=== PATIENT | female | born 1980 | race American Indian/Alaskan Native ===

== ENCOUNTER 2016-09-10 19:02 | Emergency (ER) | payer OTHER ==
[2016-09-10 19:33] VITALS: BMI 39.1
[2016-09-10 19:38] VITALS: RESP 16
--- NOTE | 2016-09-10 19:59 | ED PDOC ---
Arrival/HPI - General Chief Complaint: Female Genitourinary Time Seen by Provider: 09/10/16 19:37 Historian: Patient - History of Present Illness Narrative History of Present Illness (Text): 09/10/16 19:55 36yo female with no PMHx present with report of pelvis pressure and hematuria. Patient states she had vaginal bleeding briefly on Friday after having sex. States the bleeding resolved but she continue to have pelvic pressure and blood when she wipes herself after urination. States her LMP was August 16 and she is not sure id she is having her period. states she have appointment with her PMD next week, but don't want to wait. Notes that her mother had cervical CA. also notes that she was recently treated for UTI. Denies fever, chills, nausea, vomiting, diarrhea, back pain, dysuria, vaginal discharge, any other complaint. Past Medical History - Provider Review Nursing Documentation Reviewed: Yes - Cardiac Hx Cardiac Disorders: No - Pulmonary Hx Respiratory Disorders: No - Neurological Hx Neurological Disorder: No - HEENT Hx HEENT Disorder: No - Renal Hx Renal Disorder: No - Endocrine/Metabolic Hx Endocrine Disorders: No - Hematological/Oncological Hx Blood Disorders: No - Integumentary Hx Dermatological Disorder: No - Musculoskeletal/Rheumatological Hx Musculoskeletal Disorders: No - Gastrointestinal Hx Gastrointestinal Disorders: No - Genitourinary/Gynecological Hx Genitourinary Disorders: No - Psychiatric Hx Psychophysiologic Disorder: No Hx Substance Use: No - Surgical History Hx Tonsillectomy: Yes (and addenoids) Hx Tubal Ligation: Yes - Anesthesia Hx Anesthesia: No Family/Social History - Physician Review Nursing Documentation Reviewed: Yes Family/Social History: Unknown Family HX Smoking Status: Light Smoker < 10 Cigarettes Daily Hx Alcohol Use: Yes Hx Substance Use: No Allergies/Home Meds Allergies/Adverse Reactions: Allergies Penicillins Allergy (Verified 09/10/16 19:33) ANAPHYLAXIS Review of Systems - Physician Review All systems were reviewed & negative as marked: Yes - Review of Systems Constitutional: Normal Eyes: Normal ENT: Normal Respiratory: Normal Cardiovascular: Normal Gastrointestinal: Abdominal Pain. absent: Constipation, Diarrhea, Nausea, Vomiting, Hematochezia, Hematemesis Genitourinary Female: Hematuria. absent: Dysuria, Frequency, Vaginal Bleeding Musculoskeletal: Normal Skin: Normal Neurological: Normal Endocrine: Normal Hemo/Lymphatic: Normal Psychiatric: Normal Physical Exam Vital Signs Reviewed: Yes Vital Signs Pulse Resp BP Pulse Ox 09/10/16 22:12 82 16 137/80 100 09/10/16 19:33 16 98 Temperature: Afebrile Blood Pressure: Normal Pulse: Regular Respiratory Rate: Normal Appearance: Positive for: Well-Appearing, Non-Toxic, Comfortable Pain Distress: None Mental Status: Positive for: Alert and Oriented X 3 - Systems Exam Head: Present: Atraumatic, Normocephalic Pupils: Present: PERRL Extroacular Muscles: Present: EOMI Conjunctiva: Present: Normal Mouth: Present: Moist Mucous Membranes Neck: Present: Normal Range of Motion Respiratory/Chest: Present: Clear to Auscultation, Good Air Exchange. No: Respiratory Distress, Accessory Muscle Use Cardiovascular: Present: Regular Rate and Rhythm, Normal S1, S2. No: Murmurs Abdomen: Present: Normal Bowel Sounds, Other (Soft). No: Tenderness, Distention , Peritoneal Signs, Rebound, Guarding, McBurney's Point Tender, Rovsing's Sign Present Back: Present: Normal Inspection Upper Extremity: Present: Normal Inspection. No: Cyanosis, Edema Lower Extremity: Present: Normal Inspection. No: Edema Neurological: Present: GCS=15, CN II-XII Intact, Speech Normal Skin: Present: Warm, Dry, Normal Color. No: Rashes Psychiatric: Present: Alert, Oriented x 3, Normal Insight, Normal Concentration Medical Decision Making ED Course and Treatment: 09/11/16 00:45 PT was comfortable in ED. Abdominal exam was benign. UA was negative except the large blood. Transvaginal US IMPRESSION: 1. No acute findings. 2. Non-acute findings are described above. Result was DW the pt and she was referred to her SHELL REPRINT OPERATOR. - Lab Interpretations Lab Results: Lab Results 09/10/16 20:07: Urine Color Yellow, Urine Appearance Slight-cloudy, Urine pH 6.5 , Ur Specific [employer] 1.020, Urine Protein Trace H, Urine Glucose (UA) Negative , Urine Ketones Negative, Urine Blood Large H, Urine Nitrate Negative, Urine Bilirubin Negative, Urine Urobilinogen 0.2, Ur Leukocyte Esterase Trace H, Urine RBC 2 - 5, Urine WBC 1 - 3, Ur Epithelial Cells 10 - 12, Urine Bacteria Occ - RAD Interpretation Radiology Orders: 09/10/16 19:37 TRANSVAGINAL [US] Stat - Medication Orders Current Medication Orders: Discontinued Medications Ibuprofen (Motrin Tab) 600 mg PO STAT STA Stop: 09/10/16 21:47 Last Admin: 09/10/16 22:02 Dose: 600 mg Disposition/Present on Arrival - Present on Arrival Any Indicators Present on Arrival: No History of DVT/PE: No History of Uncontrolled Diabetes: No Urinary Catheter: No History of Decub. Ulcer: No History Surgical Site Infection Following: None - Disposition Have Diagnosis and Disposition been Completed?: Yes Diagnosis: Hematuria, Abdominal pain Disposition: HOME/ ROUTINE Disposition Time: 21:50 Patient Plan: Discharge Condition: STABLE Discharge Instructions (ExitCare): Abdominal Pain (ED) Additional Instructions: Follow up with your SHELL REPRINT OPERATOR Return to ED for any new or worsening symptoms Referrals: Veronica Donnelly MD [Primary Care Provider] - Follow up with primary
[2016-09-10 20:16] LABS: PH,URINE 6.5 (4.7-8.0); URINE APPEARANCE SLIGHT-CLOUDY (CLEAR); URINE BILIRUBIN NEGATIVE (NEGATIVE); URINE BLOOD LARGE (NEGATIVE); URINE COLOR YELLOW (YELLOW); URINE GLUCOSE (UA) NEGATIVE (NEGATIVE); URINE KETONE NEGATIVE (NEGATIVE); URINE LEUKOCYTE ESTERASE TRACE Leu/uL (NEGATIVE); URINE PROTEIN TRACE mg/dL (<30 mg/dL); URINE UROBILINOGEN 0.2 E.U./dL (<1 E.U./dL)
[2016-09-10 20:21] LABS: URINE BACTERIA OCC (NEG)
--- NOTE | 2016-09-10 21:38 | US ---
EXAM: US Pelvis Complete, Transabdominal CLINICAL HISTORY: 36 years old, female; Pain; Pelvic pain; Additional info: Pelvic pressure TECHNIQUE: Real-time transabdominal pelvic ultrasound (complete) with image documentation. COMPARISON: No relevant prior studies available. FINDINGS: Uterus/cervix: Uterus measures 9.2 x 6.5 x 7.0 cm in size. No myometrial mass. Endometrium: 1.8 cm in thickness. Right ovary: Not visualized. Left ovary: 1.7 x 3.6 x 1.8 cm in size. No mass. Normal flow. Free fluid: No significant free fluid. Bladder: Unremarkable as visualized. IMPRESSION: 1.No acute findings. 2.Non-acute findings are described above. EXAM: US Pelvis, Transvaginal CLINICAL HISTORY: 36 years old, female; Pain; Pelvic pain; Additional info: Pelvic pressure TECHNIQUE: Real-time transvaginal pelvic ultrasound (complete) with image documentation. Transvaginal imaging was used for better evaluation of the endometrium and adnexa. COMPARISON: No relevant prior studies available. FINDINGS: Uterus/cervix: Uterus measures 9.2 x 6.5 x 7.0 cm in size. No myometrial mass. Endometrium: 1.8 cm in thickness. Right ovary: Not visualized. Left ovary: 1.7 x 3.6 x 1.8 cm in size. No mass. Normal flow. Free fluid: No significant free fluid. Bladder: Empty bladder which cannot be evaluated with this probe.
[2016-09-10 23:48] VITALS: BP 137/80; PULSE 82; O2SAT 100
== END 2016-09-10 22:12 | disposition home or self-care (01) ==
LOC: ED 19:02
DX: R31.9 Hematuria, unspecified (principal); R10.9 Unspecified abdominal pain

== ENCOUNTER 2016-10-13 15:51 | Emergency (ER) | payer OTHER ==
[2016-10-13 16:30] VITALS: BMI 36.0
[2016-10-13 16:36] VITALS: BP 135/70; PULSE 85; RESP 15; TEMP 98.7; O2SAT 97
[2016-10-13] MEDS ORDERED: Tetracaine 0.5% Ophth 2 ML BOTTLE ONE (16:44)
--- NOTE | 2016-10-13 16:51 | ED PDOC ---
Arrival/HPI - General Chief Complaint: Eye Problem Time Seen by Provider: 10/13/16 16:46 Historian: Patient - History of Present Illness Narrative History of Present Illness (Text): 10/13/16 16:59 36yr old female presents today with 2 day history of burning, irritation and redness to both eyes. pt states she used her contacts and extra day. denies overnight use. pt states she is usually good and throws her contacts out after two weeks but kept the contacts in for an extra night. pt states she developed burning in the eyes. pt states she now has redness and light sensitivity x 2 days. pt states she woke up today and eyes were crusted shut. denies periorbital edema or erythema. no fever/chills. denies headaches or weakness. no other complaints. Time/Duration: Other ( 2 days) Symptom Onset: Gradual Symptom Course: Worsening Quality: Burning Severity Level: 6 Past Medical History - Provider Review Nursing Documentation Reviewed: Yes - Travel History Have you recently traveled outside [place] w/in the past 3 mons?: No - Cardiac Hx Cardiac Disorders: No - Pulmonary Hx Respiratory Disorders: No - Neurological Hx Neurological Disorder: No - HEENT Hx HEENT Disorder: No - Renal Hx Renal Disorder: No - Endocrine/Metabolic Hx Endocrine Disorders: No - Hematological/Oncological Hx Blood Disorders: No - Integumentary Hx Dermatological Disorder: No - Musculoskeletal/Rheumatological Hx Musculoskeletal Disorders: No - Gastrointestinal Hx Gastrointestinal Disorders: No - Genitourinary/Gynecological Hx Genitourinary Disorders: No - Psychiatric Hx Psychophysiologic Disorder: No Hx Substance Use: No - Surgical History Hx Tonsillectomy: Yes (and addenoids) Hx Tubal Ligation: Yes - Anesthesia Hx Anesthesia: Yes Hx Anesthesia Reactions: No Hx Malignant Hyperthermia: No Family/Social History - Physician Review Nursing Documentation Reviewed: Yes Family/Social History: Unknown Family HX Smoking Status: Light Smoker < 10 Cigarettes Daily Hx Alcohol Use: Yes Frequency of alcohol use: Socially Hx Substance Use: No Allergies/Home Meds Allergies/Adverse Reactions: Allergies Penicillins Allergy (Verified 10/13/16 16:30) ANAPHYLAXIS Review of Systems - Review of Systems Constitutional: absent: Fatigue, Fevers Eyes: Photophobia, Eye Pain, Other (eye redness). absent: Vision Changes Respiratory: absent: SOB, Cough Cardiovascular: absent: Chest Pain, Palpitations Gastrointestinal: absent: Abdominal Pain, Nausea, Vomiting Neurological: absent: Headache, Dizziness Physical Exam Vital Signs Reviewed: Yes Vital Signs Temp Pulse Resp BP Pulse Ox 10/13/16 16:31 98.7 F 85 15 135/70 97 Temperature: Afebrile Blood Pressure: Normal Pulse: Regular Respiratory Rate: Normal Appearance: Positive for: Well-Appearing, Non-Toxic, Comfortable Pain Distress: None Mental Status: Positive for: Alert and Oriented X 3 - Systems Exam Head: Present: Atraumatic Extroacular Muscles: Present: EOMI Conjunctiva: Present: Injected (+ bilateral conjunctival injection. no corneal ulceration, no dye uptake. no corneal abrasion. no periorbital edema or erythema. ) Mouth: Present: Moist Mucous Membranes Neck: Present: Normal Range of Motion Respiratory/Chest: Present: Clear to Auscultation, Good Air Exchange. No: Respiratory Distress, Accessory Muscle Use Cardiovascular: Present: Regular Rate and Rhythm, Normal S1, S2. No: Murmurs Neurological: Present: GCS=15 Skin: Present: Warm, Dry Psychiatric: Present: Alert Medical Decision Making ED Course and Treatment: 10/13/16 17:03 Patient is nontoxic well appearing in no distress visual acuity wnl. Bilateral Conjunctival injection noted, PERRLA, extraocular muscles intact Advised follow-up with e commerce analyst tomorrow. Advised applying eyedrops as prescribed. Advised to return if symptoms worsen persist or if new concerning symptoms develop Patient verbalizes understanding of discharge instructions and need for immediate followup. all aspects of this case were discussed the attending of record. Impression: Conjunctivitis Ciloxan; 2 drops every 2 hours while awake x2 days then every 4 hours x 5 days. Followup with the eye doctor tomorrow. Return immediately if symptoms worsen persist or if new symptoms develop; blurry vision, worsening eye pain, worsening redness or any other concerning symptoms develop. Follow up with the primary care physician within the next 2 days - Medication Orders Current Medication Orders: Discontinued Medications Ciprofloxacin (Ciloxan 0.3% Ophth Soln) 2 drop OU STAT STA Stop: 10/13/16 16:53 Tetracaine HCl (Tetracaine 0.5% Ophth Soln) Confirm Administered Dose 2 drop .ROUTE .STK-MED ONE Stop: 10/13/16 16:45 Disposition/Present on Arrival - Present on Arrival Any Indicators Present on Arrival: No History of DVT/PE: No History of Uncontrolled Diabetes: No Urinary Catheter: No History of Decub. Ulcer: No History Surgical Site Infection Following: None - Disposition Have Diagnosis and Disposition been Completed?: Yes Diagnosis: Conjunctivitis Disposition: HOME/ ROUTINE Disposition Time: 16:47 Patient Plan: Discharge Patient Problems: Current Active Problems Problem Status Onset Conjunctivitis Acute Condition: GOOD Discharge Instructions (ExitCare): Conjunctivitis (ED) Additional Instructions: Ciloxan; 2 drops every 2 hours while awake x2 days then every 4 hours x 5 days. Followup with the eye doctor tomorrow. Return immediately if symptoms worsen persist or if new symptoms develop; blurry vision, worsening eye pain, worsening redness or any other concerning symptoms develop. Follow up with the primary care physician within the next 2 days Prescriptions: Ciprofloxacin 0.3% [Ciloxan 0.3% Ophth SOLN] 2 drop OU Q4H #1 bottle Referrals: Willie Narayan MD [Staff Provider] - Follow up with primary Shannan Mendoza MD [Staff Provider] - Follow up with primary
[2016-10-13] MEDS ORDERED: Ciprofloxacin 0.3% OPTH SOLN OU STA (16:52)
== END 2016-10-13 17:29 | disposition home or self-care (01) ==
LOC: ED 15:51
DX: H10.9 Unspecified conjunctivitis (principal)

== ENCOUNTER 2017-02-12 19:42 | Emergency (ER) | payer OTHER ==
[2017-02-12 19:48] VITALS: BMI 33.3
[2017-02-12 19:52] VITALS: BP 131/78; PULSE 69; RESP 18; TEMP 98; O2SAT 99
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
[2017-02-12] MEDS ORDERED: Naproxen 550 mg Tab PO SCH (20:15)
[2017-02-12] MEDS ORDERED: Oxycodone/Acetaminophen 5/325 mg Tab PO STA (22:27)
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
== END 2017-02-12 22:35 | disposition home or self-care (01) ==
LOC: ED 19:42
DX: S63.501A Unspecified sprain of right wrist, initial encounter (principal); V03.90XA Pedestrian on foot injured in collision with car, pick-up truck or van, unspecified whether traffic or nontraffic accident, initial encounter; Y92.410 Unspecified street and highway as the place of occurrence of the external cause; F17.210 Nicotine dependence, cigarettes, uncomplicated; Z88.0 Allergy status to penicillin; Z98.51 Tubal ligation status